=== PATIENT | female | born 1975 | race Caucasian/White ===

== ENCOUNTER → 2019-12-15 | Outpatient (CLI) | payer BC, OTHER ==
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
== END | disposition home or self-care (01) ==
LOC: KCIC 14:31
PROVIDERS: ATTEND Family Medicine
DX: M25.522 Pain in left elbow (principal)
CPT/HCPCS: 73080

== ENCOUNTER → 2020-10-03 | Outpatient (CLI) | payer BC, OTHER ==
--- NOTE | 2020-10-04 08:59 | SLEEP ---
DATE OF STUDY: 10/03/2020 ATTENDING PHYSICIAN: Dr. Nilesh Mckeon. The patient is a 45-year-old who weighs 168 pounds with a BMI of 30.7. The patient underwent home sleep study performed at [facility]. Total recording time was 390 minutes. SLEEP ARCHITECTURE: During the night study, the patient has 4 central apneas, 3 obstructive apneas, 9 mixed apneas. There were 10 hypopneas. The patient's AHI was 10.6 per hour. Nocturnal oximetry study revealed an average oxygen saturation of 94% with a lowest of 86%. Only 0.8 minutes were spent with oxygen saturation less than 90%. Mean heart rate 69 beats per minute. IMPRESSION: 1. Mild obstructive sleep apnea at an AHI of 10.6 per hour. 2. No significant nocturnal hypoxia. RECOMMENDATIONS: 1. The patient has mild GEORGIE. I would recommend weight loss as initial form of treatment. 2. If the patient remains clinically symptomatic or has comorbid conditions, then consider treatment of sleep apnea with either CPAP versus oral appliance. 3. Avoid [employer] depressants. 4. Caution regarding driving until symptoms of sleep apnea resolve with above recommendations. PING DR: Edward TID: [id number] CC: NILESH MCKEON MD
== END ==
LOC: RT 07:38
PROVIDERS: ATTEND Nurse Practitioner Gerontology
DX: G47.33 Obstructive sleep apnea (adult) (pediatric) (principal)
CPT/HCPCS: G0399

== ENCOUNTER → 2020-11-07 | Outpatient (CLI) | payer BC, OTHER ==
--- NOTE | 2020-11-07 16:59 | CARD ---
MR#: [id number] Date of Study: 11/07/2020 Ordering Physician: EDELMIRA ALLEN, Referring Physician: EDELMIRA ALLEN, Tech: Jose Armando Hatch [facility] APPROVED REPORT EXAM: Two-dimensional and M-mode echocardiogram with Doppler and color Doppler. Other Information Quality : AverageHR: 68bpm Rhythm : NSR INDICATION Dyspnea 2D DIMENSIONS Left Atrium(2D)2.9 (1.6-4.0cm)IVSd0.9 (0.7-1.1cm) Aortic Root(2D)2.8 (2.0-3.7cm)LVDd3.9 (3.9-5.9cm) LVOT Diameter1.9 (1.8-2.4cm)PWd0.9 (0.7-1.1cm) LVDs2.2 (2.5-4.0cm)FS (%) 43.0 % SV48.0 mlLVEF(%)74.8 (>50%) Aortic Valve AoV Peak Ovidio.117.2cm/sAoV VTI22.8cm AO Peak GR.5.5mmHgLVOT Peak Ovidio.98.6cm/s AO Mean GR.3mmHgAVA (VMAX)2.30cm2 Mitral Valve MV E Gklninsn29.6cm/sMV E Peak Gr.2mmHg MV DECEL [id number] A Zhwkrnpk30.5cm/s MV E Mean Gr.1mmHgE/A Ratio1.4 Pulmonary Valve PV Peak Bnuwletk721.2cm/s Tricuspid Valve TR P. Gedpzhqu134im/sTR Peak Gr.16mmHg Pulmonary Vein S1 Caeysgjg18.0cm/sD2 Gsxpjqfy39.0cm/s PVa [id number] LEFT VENTRICLE The left ventricle is normal size. There is normal left ventricular wall thickness. The left ventricu lar systolic function is normal. The ejection fraction is 60-65%. There is normal LV segmental wall m otion. The left ventricular diastolic function and filling is normal for age. RIGHT VENTRICLE The right ventricle is normal size. There is normal right ventricular wall thickness. The right ventr icular systolic function is normal. ATRIA The left atrium size is normal. The right atrium size is normal. The interatrial septum is intact wit h no evidence for an atrial septal defect or patent foramen ovale as noted on 2-D or Doppler imaging. AORTIC VALVE The aortic valve is normal in structure and function. Doppler and Color Flow revealed no significant aortic regurgitation. There is no significant aortic valvular stenosis. There is no aortic valvular v egetation. MITRAL VALVE The mitral valve is normal in structure and function. There is no evidence of mitral valve prolapse. There is no mitral valve stenosis. Doppler and Color-flow revealed trace mitral regurgitation. TRICUSPID VALVE The tricuspid valve is normal in structure and function. Doppler and Color Flow revealed no tricuspid valve regurgitation noted. There is no tricuspid valve prolapse or vegetation. There is no tricuspid valve stenosis. PULMONIC VALVE The pulmonary valve is normal in structure and function. Doppler and Color Flow revealed no pulmonic valvular regurgitation. There is no pulmonic valvular stenosis. GREAT VESSELS The aortic root is normal in size. The ascending aorta is normal in size. The pulmonary artery is nor mal. The IVC is normal in size and collapses >50% with inspiration. PERICARDIAL EFFUSION There is no pleural effusion. There is no evidence of significant pericardial effusion. Critical Notification Critical Value: No <Conclusion> The left ventricular systolic function is normal. The ejection fraction is 60-65%. There is normal LV segmental wall motion. Trace mitral regurgitation. There is no evidence of significant pericardial effusion. Signed by : Elder Shaw, Electronically Approved : 11/07/2020 16:59:13
== END ==
LOC: ECHO 13:32
PROVIDERS: ATTEND Internal Medicine Cardiovascular Disease
DX: R06.00 Dyspnea, unspecified (principal); R07.89 Other chest pain
CPT/HCPCS: 93306